=== PATIENT | female | born 1990 | race Caucasian/White ===

== ENCOUNTER 2016-03-17 12:23 | Outpatient (CLI) | payer OTHER ==
[~2016-03-17] VITALS: Ht 157.5 cm; Wt 78.2 kg
[~2016-03-17 12:23] MED LIST: PREN1TAB49
[2016-03-17 12:48] VITALS: Ht 157.5 cm; Wt 78.2 kg
[2016-03-17 13:09] LABS: ADD UMIC YES; URINE BILIRUBIN (Dip) NEGATIVE (NEGATIVE); URINE BLOOD (Dip) 3+ (NEGATIVE); URINE COLOR LT. YELLOW (YELLOW); URINE GLUCOSE (Dip) NEGATIVE (NEGATIVE); URINE KETONES (Dip) NEGATIVE (NEGATIVE); URINE LEUKOCYTE ESTERASE (Dip) 1+ (NEGATIVE); URINE NITRITE (Dip) NEGATIVE (NEGATIVE); URINE TOTAL PROTEIN (Dip) NEGATIVE (NEGATIVE); URINE UROBILINOGEN (Dip) 0.2 E.U./dL (0.1-1.0)
[2016-03-17] MEDS ORDERED: CEFTRIAXONE 1 GM INJ IM ONE (14:30)
--- NOTE | 2016-03-17 15:57 | RADRPT ---
PROCEDURE: Limited obstetric ultrasound CLINICAL INDICATION: Pain TECHNIQUE: Multiple transverse and longitudinal grayscale images of the pelvis were obtained [place] sabdominally and transvaginally.. COMPARISON: same day FINDINGS: The cervix is closed with a length of 5.4 cm. There is a single viable intrauterine gestation. Cardiac activity is present with 152 beats per min [place]. There is a vertex/variable presentation. The placenta is fundal. There is no evidence for an abruption or placenta previa. There is a 1.6 cm complex Nabothian cysts in the cervix. RPTAT: AA IMPRESSION: Cervix length measures 5.4 cm. .Luiz Welch MD, MD Date Time Electronically viewed and signed by .Luiz Welch MD, on 03/17/2016 15:57 .S/
== END 2016-03-17 16:32 | disposition home or self-care (01) ==
LOC: OBT 12:23 → L-D 12:24 → OBT 16:32
PROVIDERS: ATTEND Obstetrics & Gynecology
DX: O60.02 Preterm labor without delivery, second trimester (principal); Z3A.00 Weeks of gestation of pregnancy not specified
CPT/HCPCS: 76817; 81001; J0696; Z7500; 81003; G0463